=== PATIENT | female | born 1995 | race Caucasian/White ===

== ENCOUNTER → 2019-05-17 12:02 | Outpatient (CLI) | payer OTHER, SELFPAY ==
[2019-05-17 14:19] LABS: Influenza A - CEPHEID Flu A NEGATIVE (NEGATIVE); Influenza B - CEPHEID Flu B NEGATIVE (NEGATIVE)
[2019-05-27 05:35] LABS: COVID19 Sendout Not Detected (Not Detected)
== END ==
PROVIDERS: Visit Provider Internal Medicine
DX: R05 Cough (principal); R06.02 Shortness of breath; R07.89 Other chest pain
CPT/HCPCS: 87502; 87635